=== PATIENT | male | born 1975 | race Caucasian/White ===

== ENCOUNTER 2016-08-07 20:56 | Emergency (ER) | payer OTHER ==
[2016-08-08] MEDS ORDERED: PREDNISONE 20 MG TABLET PO ONE (01:48)
[2016-08-08] MEDS ORDERED: ALBUTEROL SULFATE HFA (90 MCG/PUFF) 8 GM MDI (1 MDI/ER DISP) IH ONE (01:48)
--- NOTE | 2016-08-08 02:14 | ER Document Report ---
ED General - General Chief Complaint: Sore Throat Stated Complaint: SORE THROAT TRAVEL OUTSIDE OF THE [place] IN LAST 30 DAYS: No - HPI Patient complains to provider of: sore throat cough Notes: Patient coming in with a history of sore throat and cough ongoing since August 01. Patient denies any fevers chills nausea vomiting. Patient denies sick contacts recent antibiotics recent travel. Denies smoking - Related Data Allergies/Adverse Reactions: No Known Allergies Allergy (Unverified 08/08/16 01:22) Past Medical History - Social History Smoking Status: Never Smoker Cigarette use (# per day): No Chew tobacco use (# tins/day): No Frequency of alcohol use: None Drug Abuse: None Family History: None Past Surgical History: Reports: Hx Tonsillectomy Review of Systems - Review of Systems Constitutional: No symptoms reported EENT: Throat pain Cardiovascular: No symptoms reported Respiratory: Cough Gastrointestinal: No symptoms reported Genitourinary: No symptoms reported Male Genitourinary: No symptoms reported Musculoskeletal: No symptoms reported Skin: No symptoms reported Hematologic/Lymphatic: No symptoms reported Neurological/Psychological: No symptoms reported Physical Exam - Vital signs Interpretation: Normal - General General appearance: Appears well, Alert - HEENT Head: Normocephalic, Atraumatic Eyes: Normal Pupils: PERRL Pharynx: Erythema Neck: Normal - Respiratory Respiratory status: No respiratory distress Chest status: Nontender Breath sounds: Wheezing - Fine wheeze right lower lobe Chest palpation: Normal - Cardiovascular Rhythm: Regular Heart sounds: Normal auscultation Murmur: No - Abdominal Inspection: Normal Distension: No distension Bowel sounds: Normal Tenderness: Nontender Organomegaly: No organomegaly - Back Back: Normal, Nontender - Extremities General upper extremity: Normal inspection, Nontender, Normal color, Normal ROM , Normal temperature General lower extremity: Normal inspection, Nontender, Normal color, Normal ROM , Normal temperature, Normal weight bearing. No: Jeana's sign - Neurological Neuro grossly intact: Yes Cognition: Normal Orientation: AAOx4 Sherry Coma Scale Eye Opening: Spontaneous Sherry Coma Scale Verbal: Oriented [place] Coma Scale Motor: Obeys Commands [place] Coma Scale Total: 15 Speech: Normal Motor strength normal: LUE, RUE, LLE, RLE Sensory: Normal - Psychological Associated symptoms: Normal affect, Normal mood - Skin Skin Temperature: Warm Skin Moisture: Dry Skin Color: Normal Course - Re-evaluation Re-evalutation: 08/08/16 04:01 Patient more likely with a viral upper her story illness and viral pharyngitis. Patient will be treated with steroids Magic mouthwash will give patient albuterol inhaler here for his cough. No wheezing. Otherwise patient nontoxic will be discharged home Discharge - Discharge Clinical Impression: Sore throat (viral), Cough in adult Condition: Good Disposition: HOME, SELF-CARE Instructions: Sore Throat ([facility]) Additional Instructions: Examination today is consistent with a viral illness. More likely you have a viral pharyngitis. We will treat your pain was steroids and Magic mouthwash. You may also take Tylenol and Motrin. Examination you do have a slight wheeze in your lungs. I will give you a albuterol inhaler 2 puffs every 4 hours for any shortness of breath. Return to the ER symptoms worsen. Drink plenty of fluids to stay hydrated. Prescriptions: Magic Mouthwash 5 ml PO Q6 PRN #120 PRN Reason: Prednisone [Deltasone 20 mg Tablet] 3 tab PO DAILY 5 Days
[2016-08-08 02:32] VITALS: BP 120/82
== END 2016-08-08 02:32 | disposition home or self-care (01) ==
LOC: ER 20:56
DX: J02.8 Acute pharyngitis due to other specified organisms (principal); B97.89 Other viral agents as the cause of diseases classified elsewhere; R05 Cough; Z90.89 Acquired absence of other organs
CPT/HCPCS: 99283; 87070; 87880; J7512; J3490